=== PATIENT | female | born 1960 | race Caucasian/White ===

== ENCOUNTER 2020-09-17 20:36 | Emergency (ER) | payer OTHER, SELFPAY ==
[2020-09-17 21:05] VITALS: BP 186/104; PULSE 80; RESP 17; TEMP 36.7; O2SAT 95; BMI 40.6
--- NOTE | 2020-09-18 01:17 | ED_ITS ---
HPI - Extremity Problem General: Chief complaint: Extremity Injury, Upper Stated complaint: left arm injury Time Seen by Provider: 09/18/20 01:15 History of Present Illness: HPI Narrative: Patient comes in today for complaints of injury to the left forearm and hand. Patient was trying to put up her window when it slipped out of her hand coming down on her forearm and hand. Patient states that it hit directly in the mid forearm and then slid down her hand causing swelling and tenderness. Patient appears well. No obvious deformity is noted. Review of Systems General: Reports: 10 or more systems reviewed and unremarkable except in HPI and below Musc: Reports: other (Injury left forearm.) Physical Exam Const: COMMON NORMALS: no acute distress and patient oriented x3 GENERAL A PPEARANCE: cooperative HENMT: COMMON NORMALS: normocephalic and Normal external nose present HEAD & SCALP: normal to inspection and normocephalic NOSE: Normal external nose present Eye: GENERAL EYE: appearance normal, both eyes and all related structures Neck/C-Spine: COMMON NORMALS: full ROM Chest: COMMONS NORMALS: normal inspection of the chest Resp: COMMON NORMALS: normal respiratory effort EFFORT & INSPECTION: Yes able to speak in complete sentences Cardio: COMMON NORMALS: regular rate and regular rhythm RATE: regular rate RHYTHM: regular rhythm GI: COMMON NORMALS: non-tender Back/Pelvis: COMMON NORMALS: thoracic and lumbar spine normal to inspection Extremity: NARRATIVE EXTREMITY EXAM: Contusion is noted to the mid forearm, some mild abrasions is also noted to the dorsal forearm and hand, ecchymosis is noted to the dorsal hand. Neuro: COMMON NORMALS: patient oriented x3 and moves all extremities Psych: COMMON NORMALS: mental status grossly normal and cooperative Skin: COMMON NORMALS: no rashes or lesions noted GENERAL SKIN EXAM: no rashes or lesions noted Course Vital Signs: Vital signs: Vital Signs Temperature 98.1 F 09/17/20 21:05 Pulse Rate 80 09/17/20 21:05 Respiratory Rate 17 09/17/20 21:05 Blood Pressure 186/104 09/17/20 21:05 Pulse Oximetry 95 09/17/20 21:05 MDM - Extremity (Nontraumatic) MDM Narrative: Medical decision making narrative: 60-year-old female comes in with injury to the left forearm. On exam we note some ecchymosis and swelling to the left forearm and the left dorsal hand. Patient has normal range of motion although is guarded due to pain. No signs of significant deformity is noted. Differential diagnosis includes contusion, sprain, fracture. X-rays noted no acute fracture. Reviewed exam with patient with recommendations for treatment and follow-up as needed. Patient reported understanding. Discharge Plan Discharge Patient Disposition: Home Clinical Impression: Contusion of forearm, left Qualifiers: Encounter type: initial encounter Qualified Code(s): S50.12XA - Contusion of left forearm, initial encounter Condition: Stable Prescriptions: New ibuprofen 600 mg tablet 600 mg PO Q6H PRN (Reason: pain) Qty: 30 RF: 0 Discharge Orders: Discharge ED (Routine); Ordered 09/18/20 Ordered By: Guido Beal Referrals: Casey Barone DO [Primary Care Provider] - Discharge Diet: Usual diet Discharge Activity: Increase activity as tolerated Patient Instructions: Contusion in Adults (ED), Opioid Safety Activity Restrictions/Additional Instructions: Activity as tolerated. Use ice to the area for further comfort. Use acetaminophen and ibuprofen for pain. Wear elastic bandage until swelling resolves. Follow-up with primary care as needed. Return to the ER for new concerns. Coding Level of Care Code ED Family Preservation Worker for Dwayne Iniguez Exam Comprehensive
--- NOTE | 2020-09-18 01:40 | XRR_ITS ---
PROCEDURE INFORMATION: Exam: XR Left Forearm Exam date and time: 09/18/2020 1:40 AM Age: 60 years old Clinical indication: Injury or trauma; Other: Dropped heavy window on arm; Blunt trauma (contusions or hematomas); Arm, lower; Left TECHNIQUE: Imaging protocol: XR Left forearm. Views: 2 views. COMPARISON: No relevant prior studies available. FINDINGS: Bones/joints: No fracture. Soft tissues: Normal. XR/XR forearm LT 2V [id number] IMPRESSION: No fracture.
--- NOTE | 2020-09-18 01:40 | XRR_ITS ---
PROCEDURE INFORMATION: Exam: XR Left Hand Exam date and time: 09/18/2020 1:40 AM Age: 60 years old Clinical indication: Injury or trauma; Other: Dropped window on hand; Blunt trauma (contusions or hematomas); Left TECHNIQUE: Imaging protocol: XR Left hand. Views: 3 or more views. COMPARISON: No relevant prior studies available. FINDINGS: Bones/joints: Mild joint space narrowing at the DIP, PIP and MCP joints. No acute fracture or dislocation. Soft tissues: Normal. XR/XR hand LT min 3V* [id number] IMPRESSION: 1. No acute fracture or dislocation. 2. Mild DIP, PIP and MCP joint osteoarthritis.
[2020-09-18] MEDS: ibuprofen 600 mg Tablet PO (02:45)
[2020-09-18 02:54] VITALS: BP 132/64; PULSE 80; RESP 16; TEMP 36.6; O2SAT 98
== END 2020-09-18 02:56 | disposition home or self-care (01) ==
PROVIDERS: Emergency Provider Nurse Practitioner Family; PCP Internal Medicine
DX: S50.12XA Contusion of left forearm, initial encounter (principal); W20.8XXA Other cause of strike by thrown, projected or falling object, initial encounter
CPT/HCPCS: 73090; 73130; 99283